=== PATIENT | female | born 1970 | race Caucasian/White ===

== ENCOUNTER 2023-12-07 06:11 | Day surgery (SDC) | payer OTHER, SELFPAY ==
[2023-10-18 13:25] VITALS: BMI 29.9
[2023-12-07 07:15] VITALS: BP 142/86; PULSE 98; RESP 20; TEMP 36.1; O2SAT 100
--- NOTE | 2023-12-07 07:23 | P.PNAN_ITS ---
Anes - Initial Pre Proc Eval Procedure: Operation Date: 12/07/23 08:30 Proposed Procedures p Screening Colonoscopy - Jason Myles MD Date/Time: 12/07/23 07:23 Surgeon: Jason Myles MD Pre Op Diagnosis: Neoplasm Screening Patient Data Age: 53 Gender: F Height: 1.65 m Weight: 82.1 kg Last Vital Signs Temp 36.1 C L 12/07/23 07:15 Pulse 98 12/07/23 07:15 Resp 20 12/07/23 07:15 BP 142/86 H 12/07/23 07:15 Pulse Ox 100 12/07/23 07:15 O2 Del Method Room Air 12/07/23 07:15 Allergies Allergy/AdvReac Type Severity Reaction Status Date / Time Penicillins Allergy Unknown Swelling Verified 12/07/23 07:13 Home Medications Medication Instructions Recorded Confirmed Type albuterol sulfate 90 mcg/actuation 1 inh inhalation Q4H PRN shortness 09/12/23 12/07/23 Rx aerosol inhaler of breath or wheezing #8.5 grams sodium,potassium,mag sulfates 17.5 See Rx Instructions PO .COMPLEX 10/18/23 12/07/23 Rx gram-3.13 gram-1.6 gram oral soln #354 mL (Suprep Bowel Prep Kit) buspirone 10 mg tablet 10 mg PO BID #60 tabs 10/31/23 12/07/23 Rx multivitamin 1 tablet PO DAILY 11/22/23 12/07/23 History Patient hx anesthesia problems: none Family hx anesthesia problems: none Results Review: All pre-operative results and documents have been reviewed as part of the pre- operative evaluation. [facility] Past Medical History Medical History Asthma Surgical History Surgical History Hx of hysterectomy Family History Family History Mother Asthma Sibling Asthma Grandparent Cerebrovascular accident Heart disease Social History Social History Smoking status: Never smoker Alcohol intake: never Substance use: never Substance use type: does not use Lack of Transportation: No Lack of Food: Never True Current Housing: I Have Housing Concerned About Future Housing: No Difficulty Paying Gas/Electric Bills: No Difficulty Paying for Meds: No Currently Unemployed: No Education: Associate Degree Difficulty w/ Childcare or Family Care: No Living arrangements: with family Occupation/Education: occupation Spiritual care concerns: No Anes - Eval Final PreProcedure Day of Procedure 12/07/23 07:23 Patient weight: overweight Heart: regular rate and rhythm Lungs: clear to auscultation Airway: Mallampati scale class II Neurological: alert and oriented Last oral intake: >/= 8 hours ASA classification: II Emergent: no Anesthetic plan: proceed Anesthesia type and monitoring: general GIVS and standard monitoring Results Review: All pre-operative results and documents have been reviewed as part of the pre- operative evaluation. Informed Consent: The patient's anesthetic plan and its attendant risks and benefits were discussed with the patient/family/POA. Questions were solicited and answers provided to the satisfaction of the patient/family/POA.
[2023-12-07] MEDS: LACTATED RINGERS 1,000 ML 150 ML IV CONT (07:24)
--- NOTE | 2023-12-07 07:58 | P.HP_ITS ---
History of Present Illness History of Present Illness Consent: Risks, benefits, and alternatives have been discussed and questions answered. Patient agrees to proceed with procedure. Chief complaint: Neoplasm Screening Narrative: Fariha Stevenson is a 53 year old female presents for screening colonoscopy. Patient's current weight appetite and bowel movements are normal. Patient denies abdominal pain. Patient reports that her bowel habits are normal. Fam nitin history is noncontributory. Review of Systems Review of Systems: Review of systems noncontributory. [facility] Past Medical History Medical History Asthma Surgical History Surgical History Hx of hysterectomy Family History Family History Mother Asthma Sibling Asthma Grandparent Cerebrovascular accident Heart disease Social History Social History Smoking status: Never smoker Alcohol intake: never Substance use: never Substance use type: does not use Lack of Transportation: No Lack of Food: Never True Current Housing: I Have Housing Concerned About Future Housing: No Difficulty Paying Gas/Electric Bills: No Difficulty Paying for Meds: No Currently Unemployed: No Education: Associate Degree Difficulty w/ Childcare or Family Care: No Living arrangements: with family Occupation/Education: occupation Spiritual care concerns: No Meds Home Medications and Allergies Home Medications Medication Instructions Recorded Confirmed Type albuterol sulfate 90 mcg/actuation 1 inh inhalation Q4H PRN shortness 09/12/23 12/07/23 Rx aerosol inhaler of breath or wheezing #8.5 grams sodium,potassium,mag sulfates 17.5 See Rx Instructions PO .COMPLEX 10/18/23 12/07/23 Rx gram-3.13 gram-1.6 gram oral soln #354 mL (Suprep Bowel Prep Kit) buspirone 10 mg tablet 10 mg PO BID #60 tabs 10/31/23 12/07/23 Rx multivitamin 1 tablet PO DAILY 11/22/23 12/07/23 History Allergies Allergy/AdvReac Type Severity Reaction Status Date / Time Penicillins Allergy Unknown Swelling Verified 12/07/23 07:13 Vital Signs Vital Signs - 24 hr 12/07/23 07:15 Temperature 96.9 F L Pulse Rate 98 Respiratory Rate 20 Blood Pressure 142/86 H Pulse Oximetry 100 Oxygen Delivery Room Air Exam Narrative: Physical exam reveals patient to be alert. Signs stable. HEENT exam is unremarkable. Patient is anicteric. Lungs are clear to auscultation and to percussion. Heart is without murmur or extra sounds. Abdomen bowel sounds are present soft nontender with no organomegaly. Digital external rectal exam is normal. Assessment and Plan Assessment and plan (1) Colon cancer screening: Code(s): Z12.11 - Encounter for screening for malignant neoplasm of colon Status: Acute Assessment and Plan: She presents today for screening colonoscopy. She appears to be at average risk of colon polyps.
[2023-12-07 08:53] VITALS: BP 101/61; PULSE 70; RESP 20; O2SAT 95
[2023-12-07 09:03] VITALS: BP 125/73; PULSE 80; RESP 18; O2SAT 96
[2023-12-07 09:13] VITALS: BP 119/76; PULSE 69; RESP 18; O2SAT 97
--- NOTE | 2023-12-07 09:29 | WPDANESPN ---
Anes - Prog Note Post-Op Date/Time: 12/07/23 09:29 Cardiovascular status: normal Respiratory status: normal Airway patency: baseline Mental status: baseline Post-Op hydration status: normal Vital Signs: Last Vital Signs Temp 36.1 C L 12/07/23 07:15 Pulse 69 12/07/23 09:13 Resp 18 12/07/23 09:13 BP 119/76 12/07/23 09:13 Pulse Ox 97 12/07/23 09:13 O2 Del Method Room Air 12/07/23 09:13 Pain Score (VAS): 0 I/O: Intake & Output 12/06/23 12/07/23 12/07/23 23:59 07:59 15:59 Intake Total 850 Balance 850 Patient Feedback: Patient satisfied with anesthetic care.
== END 2023-12-07 09:25 | disposition home or self-care (01) ==
PROVIDERS: PCP Family Medicine Adolescent Medicine; Visit Provider Internal Medicine Gastroenterology
PROC: 0DJD8ZZ Inspection of Lower Intestinal Tract, Via Natural or Artificial Opening Endoscopic (ICD-10-PCS; CPT 45378; principal; 2023-12-07 08:30)
DX: Z12.11 Encounter for screening for malignant neoplasm of colon (principal); K64.8 Other hemorrhoids
CPT/HCPCS: 45378